=== PATIENT | male | born 1990 | race Caucasian/White ===

== ENCOUNTER 2018-04-01 13:36 | Emergency (ER) | payer SELFPAY ==
[2018-04-01 13:50] VITALS: BP 130/80
[2018-04-01] MEDS ORDERED: DIPHENHYDRAMINE HCL 25 MG CAPSULE PO ONE (14:11)
[2018-04-01] MEDS ORDERED: PREDNISONE 20 MG TABLET PO ONE (14:12)
--- NOTE | 2018-04-01 14:17 | ER Document Report ---
HPI - HPI Pain Level: 2 Notes: Patient is a 27-year-old male who presents with rash to his left arm and buttocks. Patient reports it has been present for approximately 2 weeks and he states he is pretty sure it is poison sarah. Patient has applied topical anti- itch cream as well as calamine lotion with minimal relief. Has not taken any other medications. Past Medical History - General Information source: Patient - Social History Smoking Status: Current Some Day Smoker Family History: Reviewed & Not Pertinent - Medical History Medical History: Negative Surgical Hx: Negative - Immunizations Immunizations up to date: Yes Vertical Provider Document - CONSTITUTIONAL Notes: PHYSICAL EXAMINATION: GENERAL: Well-appearing, well-nourished and in no acute distress. HEAD: Atraumatic, normocephalic. EYES: Pupils equal round extraocular movements intact, conjunctiva are normal. ENT: Nares patent NECK: Normal range of motion LUNGS: No respiratory distress Musculoskeletal: Normal range of motion NEUROLOGICAL: Normal speech, normal gait. PSYCH: Normal mood, normal affect. SKIN: Warm, Dry, normal turgor, rash noted to multiple areas of body on both buttocks, bilateral axilla and left arm with blisters and vesicles and some are in linear streaks. - INFECTION CONTROL TRAVEL OUTSIDE OF THE [place] IN LAST 30 DAYS: No Course - Re-evaluation Re-evalutation: 04/01/18 14:24 Rashes most consistent with exposure to poison sarah, I estimate there is LOW risk for any life threatening rash. At this time the patient looks extremely well and there are no signs of systemic infection, however this may change at any time and the rash may change. I have reevaluated this patient multiple times and no significant life threatening changes are noted. The patient and I have discussed the diagnosis and risks, and we agree with discharging home with close follow-up with the understanding that symptoms and presentations can change. We also discussed returning to the Emergency Department immediately if new or worsening symptoms occur. We have discussed the symptoms which are most concerning (e.g., changing or worsening pain, fever, numbness, weakness, cool or painful digits) that necessitate immediate return. - Vital Signs Vital signs: Temp Pulse Resp BP Pulse Ox 98.5 F 75 16 130/80 H 98 04/01/18 13:49 04/01/18 13:49 04/01/18 13:49 04/01/18 13:49 04/01/18 13:49 Discharge - Discharge Clinical Impression: Poison sarah Condition: Stable Disposition: HOME, SELF-CARE Additional Instructions: Poison Sarah Poison sarah and poison oak can cause an itchy rash. This is called contact dermatitis. It's an allergy to an oil in the plant's leaves. The oil can be spread from clothing to skin, from pets to humans, or from one spot on the body to another. Washing thoroughly with soap immediately after exposure can prevent the rash. (Clothing should be washed as well.) If the oil is not removed, an itchy rash develops a few days after the exposure. Blisters may develop. Two to three weeks may be required for healing. Generally, treatment consists of: (1) an immediate thorough washing with soap to remove the oil, (2) application of a cortisone cream, and (3) antihistamines for itching. If the reaction is particularly severe, oral cortisone medicine may be required. If there are oozing areas, these can be soaked in epsom salts or Isabella's solution. Call the doctor if the rash worsens despite treatment, or if signs of infection occur such as spreading redness, red streaks, swollen glands, swelling , or fever. Please take medications as prescribed. Also take Benadryl 50 mg every 6 hours. This will help with the itching. Prescriptions: Prednisone [Deltasone 20 mg Tablet] 3 tab PO DAILY 5 Days tablet Triamcinolone Acetonide 80 gm TP BID #80 gm
== END 2018-04-01 14:24 | disposition home or self-care (01) ==
LOC: ER 13:36
DX: L23.7 Allergic contact dermatitis due to plants, except food (principal); F17.200 Nicotine dependence, unspecified, uncomplicated
CPT/HCPCS: 99282; J7512